=== PATIENT | female | born 1960 | race Caucasian/White ===

== ENCOUNTER → 2020-02-16 | Outpatient (CLI) | payer OTHER | LOC: M.LAB 02-02 10:30 → M.MRI 02-02 10:30 → M.LAB 02-02 10:45 → M.MRI 02-02 11:00 → M.LAB 02-02 11:00 → M.MRI 02-02 11:30 | DX: G93.89 Other specified disorders of brain (principal); G43.919 Migraine, unspecified, intractable, without status migrainosus; Z86.73 Personal history of transient ischemic attack (TIA), and cerebral infarction without residual deficits ==

== ENCOUNTER → 2020-03-14 | Outpatient (CLI) | payer OTHER | LOC: M.MRI 02-29 11:24 | DX: M51.27 Other intervertebral disc displacement, lumbosacral region (principal); I63.9 Cerebral infarction, unspecified; M54.41 Lumbago with sciatica, right side; G43.009 Migraine without aura, not intractable, without status migrainosus; Z00.00 Encounter for general adult medical examination without abnormal findings; M25.78 Osteophyte, vertebrae; M41.87 Other forms of scoliosis, lumbosacral region; M47.817 Spondylosis without myelopathy or radiculopathy, lumbosacral region; M51.36 Other intervertebral disc degeneration, lumbar region; M48.061 Spinal stenosis, lumbar region without neurogenic claudication; M12.88 Other specific arthropathies, not elsewhere classified, other specified site ==

== ENCOUNTER → 2020-03-15 | Outpatient (CLI) | payer OTHER | LOC: M.ULTRA 09:32 | DX: J98.4 Other disorders of lung (principal); G43.909 Migraine, unspecified, not intractable, without status migrainosus; Z85.3 Personal history of malignant neoplasm of breast; Z90.11 Acquired absence of right breast and nipple ==

== ENCOUNTER 2020-03-18 10:34 | Emergency (ER) | payer OTHER ==
[~2020-03-18] VITALS: Ht 170.2 cm; Wt 81.7 kg
[2020-03-18] MEDS ORDERED: LIPITOR40 MG PO (10:46)
[2020-03-18] MEDS ORDERED: AMITRIPTYLINE150 MG PO (10:46)
[2020-03-18] MEDS ORDERED: CRANBERRY200 MG PO (10:47)
[2020-03-18] MEDS ORDERED: FLEXERIL PO (10:47)
[2020-03-18] MEDS ORDERED: COMPAZINE10 MG PO (10:47)
[2020-03-18] MEDS ORDERED: MACROBID 100 M100 MG PO (10:47)
[2020-03-18] MEDS ORDERED: BACLOFEN 10MG T10 MG PO (10:47)
[2020-03-18 11:10] LABS: ABSOLUTE BASOPHILS 0.1 thou/uL (0.0-0.2); ABSOLUTE EOSINOPHILS 0.4 thou/uL (0.0-0.7); ABSOLUTE LYMPHOCYTES 2.3 thou/uL (0.8-5.3); ABSOLUTE MONOCYTES 0.5 thou/uL (0.0-1.2); ABSOLUTE NEUTROPHILS 2.6 thou/uL (1.6-8.1); BASOPHILS 1.4 %; EOSINOPHILS 6.3 %; HEMATOCRIT 38.8 % (37.0-47.0); HEMOGLOBIN 13.3 gm/dL (12.0-15.0); LYMPHOCYTES 39.1 %; MCH 29.2 pg (26.0-34.0); MCHC 34.2 g/dL (28.0-37.0); MCV 85.4 fL (80.0-100.0); MONOCYTES 8.7 %; MPV 9.2 fl. (7.2-11.1); NUCLEATED RBCS 0 /100WBC; PLATELET COUNT* 151 thou/uL (150-400); POLYS 44.5 %; RBC 4.54 mil/uL (4.20-5.00); RDW-CV 13.7 % (10.5-14.5); WBC 5.8 thou/uL (4.0-11.0)
[2020-03-18 11:21] LABS: APTT 26.6 Seconds (25.0-31.3); PROTIME 10.7 Seconds (9.20-11.50)
[2020-03-18 11:22] LABS: CALCIUM 8.6 mg/dL (8.5-10.1); CREATININE 0.9 mg/dL (0.6-1.3); POTASSIUM 4.6 mmol/L (3.5-5.1)
[2020-03-18 11:32] LABS: ALBUMIN 3.5 g/dL (3.4-5.0); TOTAL BILIRUBIN 0.8 mg/dL (<0.1-1.0); TOTAL PROTEIN 7.3 g/dL (6.4-8.2)
[2020-03-18 13:08] VITALS: BP 140/73
--- NOTE | 2020-03-19 13:27 | EKG ---
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
== END 2020-03-18 13:09 | disposition home or self-care (01) ==
LOC: M.ERS 10:34
PROVIDERS: Family Medicine
DX: G43.909 Migraine, unspecified, not intractable, without status migrainosus (principal); Z90.49 Acquired absence of other specified parts of digestive tract; Z86.73 Personal history of transient ischemic attack (TIA), and cerebral infarction without residual deficits; Z79.899 Other long term (current) drug therapy

== ENCOUNTER → 2020-04-09 | Outpatient (CLI) | payer OTHER ==
[~2020-04-09] MED LIST: AMITRIPTYLINE150 MG PO; BACLOFEN 10MG T10 MG PO; COMPAZINE10 MG PO; CRANBERRY200 MG PO; FLEXERIL PO; IBU800 MG PO; LIPITOR40 MG PO; MACROBID 100 M100 MG PO; TRAMADOL 50 MG50 MG PO
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
== END ==
LOC: M.PC 04:39
PROVIDERS: ATTEND Anesthesiology Pain Medicine
DX: M54.5 Low back pain (principal); M47.816 Spondylosis without myelopathy or radiculopathy, lumbar region; M48.061 Spinal stenosis, lumbar region without neurogenic claudication; I10 Essential (primary) hypertension; M06.869 Other specified rheumatoid arthritis, unspecified knee; F11.90 Opioid use, unspecified, uncomplicated; Z90.49 Acquired absence of other specified parts of digestive tract

== ENCOUNTER → 2020-05-28 | Outpatient (CLI) | payer OTHER ==
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
== END ==
LOC: M.PC 01:53
PROVIDERS: ATTEND Anesthesiology Pain Medicine
DX: M48.061 Spinal stenosis, lumbar region without neurogenic claudication (principal); G43.909 Migraine, unspecified, not intractable, without status migrainosus; I63.9 Cerebral infarction, unspecified; M27.8 Other specified diseases of jaws; F11.20 Opioid dependence, uncomplicated; Z79.899 Other long term (current) drug therapy

== ENCOUNTER → 2020-07-03 | Outpatient (CLI) | payer OTHER | LOC: M.CT 06-27 09:00 | PROVIDERS: ATTEND Nurse Practitioner Family | DX: Z12.31 Encounter for screening mammogram for malignant neoplasm of breast (principal); K76.89 Other specified diseases of liver; K44.9 Diaphragmatic hernia without obstruction or gangrene; M47.816 Spondylosis without myelopathy or radiculopathy, lumbar region; M41.86 Other forms of scoliosis, lumbar region ==

== ENCOUNTER 2020-08-20 13:49 | Emergency (ER) | payer OTHER ==
[~2020-08-20] VITALS: Ht 167.6 cm; Wt 83.0 kg
[2020-08-20] MEDS ORDERED: BACLOFEN 10MG T10 MG PO (14:24)
[2020-08-20] MEDS ORDERED: LIPITOR40 MG PO (14:24)
[2020-08-20 14:49] LABS: ABSOLUTE LYMPHOCYTES 1.2 thou/uL (0.8-5.3); ABSOLUTE MONOCYTES 0.4 thou/uL (0.0-1.2); ABSOLUTE NEUTROPHILS 2.3 thou/uL (1.6-8.1); BASOPHILS 0.4 %; EOSINOPHILS 0.4 %; HEMATOCRIT 37.9 % (37.0-47.0); LYMPHOCYTES 30.1 %; MCH 28.9 pg (26.0-34.0); MCHC 34.3 g/dL (28.0-37.0); MCV 84.3 fL (80.0-100.0); MONOCYTES 9.9 %; MPV 9.7 fl. (7.2-11.1); NUCLEATED RBCS 0 /100WBC; PLATELET COUNT* 170 thou/uL (150-400); POLYS 59.2 %; RDW-CV 13.5 % (10.5-14.5); WBC 3.9 thou/uL (4.0-11.0)
[2020-08-20 14:58] LABS: POTASSIUM 3.7 mmol/L (3.5-5.1)
[2020-08-20 15:09] LABS: TOTAL BILIRUBIN 0.6 mg/dL (<0.1-1.0); TOTAL PROTEIN 7.1 g/dL (6.4-8.2)
[2020-08-20 16:03] LABS: APTT 28.4 Seconds (25.0-31.3); PROTIME 10.6 Seconds (9.20-11.50)
[2020-08-20] MEDS ORDERED: TESSALON PERLE100 MG PO (16:27)
[2020-08-20] MEDS ORDERED: ZPAK PO (16:27)
[2020-08-20] MEDS ORDERED: PREDNISONE 20 M20 MG PO (16:27)
[2020-08-20] MEDS ORDERED: VENTOLIN HFA 1818 GM INH (16:27)
[2020-08-20 16:41] VITALS: BP 128/70
--- NOTE | 2020-08-21 11:30 | EKG ---
[place] [address] ELECTROCARDIOGRAM REPORT Name: AZUL REYNOLDS Room: [facility]#: [id number] Admission: 08/20/20 Attend Phys: Discharge: 08/20/20 Date of : 58 Date of Service: 08/20/20 1431 Report #: [id number] THIS REPORT FOR: //name// [facility] ED Test Date: 2020-08-20 Test Time: 14:31:16 Pat Name: AZUL REYNOLDS Department: Room: Gender: F Lei Seller: [facility] : 1960 Requested By: Constance Alberts Order Number: [id number] MD: William Gerber Measurements Intervals [place] Rate: 77 P: 39 [place]: 153 QRS: 38 QRSD: 99 T: 49 QT: 368 QTc: 417 Interpretive Statements Sinus rhythm Compared to ECG 03/18/2020 11:33:46 No significant changes Electronically Signed On 08-21-2020 11:29:57 [employer] by William Gerber [email or web address] <ELECTRONICALLY SIGNED> By: William Gerber MD, [facility] 08/21/20 1129 1431 1431 William Gerber MD, FACC /EPI
== END 2020-08-20 16:42 | disposition home or self-care (01) ==
LOC: M.ERS 13:49
PROVIDERS: Nurse Practitioner Family
DX: U07.1 COVID-19 (principal); G43.909 Migraine, unspecified, not intractable, without status migrainosus; E78.5 Hyperlipidemia, unspecified; E66.9 Obesity, unspecified; Z68.29 Body mass index [BMI] 29.0-29.9, adult; Z86.73 Personal history of transient ischemic attack (TIA), and cerebral infarction without residual deficits; Z90.49 Acquired absence of other specified parts of digestive tract; Z90.89 Acquired absence of other organs; Z98.890 Other specified postprocedural states